=== PATIENT | male | born 1955 | race Caucasian/White ===

== ENCOUNTER 2019-03-20 13:10 | Inpatient (IN) | payer MEDICARE, OTHER ==
[~2019-03-20] VITALS: Ht 203.2 cm; Wt 163.0 kg
[~2019-03-20 13:10] MED LIST: AMLO-145 ORAL; AMOX500C2 PO; APIX5TAB ORAL; BENA20TA4 ORAL; CARV25TA97 PO; FURO20TA3 ORAL; LEVO25TA6 ORAL; LEVO750T25 PO; SULF1TAB31 PO; [UNRECOGNIZED DRUG - CODE] ORAL
[2019-03-20] MEDS ORDERED: CEFTRIAXONE 1 GM/50 ML (PMX) 50 ML IVPB SCH ×2 (14:30→17:00)
[2019-03-20] MEDS ORDERED: VANCOMYCIN IV PER PHARMACY XX SCH ×2 (14:30→17:00)
[2019-03-20] MEDS ORDERED: VANCOMYCIN 1 GM (PMX) 250 ML IVPB ONE (15:30)
[2019-03-20] MEDS ORDERED: ACETAMINOPHEN 325 MG TAB PO PRN ×2 (16:30→17:00)
[2019-03-20] MEDS ORDERED: ONDANSETRON 4 MG INJ IV PRN ×2 (16:30→17:00)
[2019-03-20] MEDS ORDERED: DOCUSATE SODIUM 100 MG CAP PO PRN (17:00)
[2019-03-20] MEDS ORDERED: NACL 0.9% 3 ML SYG IV SCH (17:00)
[2019-03-20] MEDS ORDERED: MAGNESIUM HYDROXIDE 30ML CUP PO PRN (17:00)
[2019-03-20] MEDS ORDERED: METOPROLOL 5 MG INJ IV PRN (17:30)
[2019-03-20] MEDS: FUROSEMIDE 20 MG TAB PO SCH (20:58)
[2019-03-20] MEDS: HYDROCODONE/APAP (5/325) TAB PO PRN (22:05)
[2019-03-20 22:44] VITALS: Ht 203.2 cm; Wt 163.0 kg
[2019-03-20 22:59] VITALS: BP 142/93; PULSE 107; RESP 22
[2019-03-21] VITALS (7 sets, daily range): BP systolic 91–115; BP diastolic 57–90; PULSE 65–114; RESP 18–21
[2019-03-21] MEDS: HYDROCODONE/APAP (5/325) TAB PO PRN ×2 (04:32→20:45)
[2019-03-21] MEDS: PANTOPRAZOLE (EC) 40 MG TAB PO SCH (06:14)
[2019-03-21] MEDS ORDERED: HEPARIN 25000 UNITS/250 ML 250 ML IV SCH (08:30)
[2019-03-21] MEDS ORDERED: HEPARIN 1000 UNITS/ML 10 ML INJ IV PRN (08:30)
[2019-03-21] MEDS ORDERED: HEPARIN 1000 UNITS/ML 10 ML INJ IV ONE (08:30)
[2019-03-21] MEDS: DIGOXIN 0.25 MG TAB PO SCH (08:31)
[2019-03-21] MEDS: BENAZEPRIL 20 MG TAB PO SCH (08:32)
[2019-03-21] MEDS: FUROSEMIDE 20 MG TAB PO SCH ×2 (08:32→20:44)
[2019-03-21] MEDS: AMLODIPINE 5 MG TAB PO SCH (08:32)
[2019-03-21] MEDS ORDERED: LEVOTHYROXINE 25 MCG TAB PO SCH (09:00)
[2019-03-21] MEDS: ENOXAPARIN 100 MG/ML SYG SC SCH ×2 (09:57→21:51)
[2019-03-21] MEDS ORDERED: CEFTRIAXONE 1 GM/50 ML (PMX) 50 ML IVPB SCH (17:30)
[2019-03-21] MEDS: AMPICILLIN/SULB 3 GM/NS (PMX) 100 ML IVPB SCH (18:28)
[2019-03-21] MEDS ORDERED: VANCOMYCIN HCL 2 GM in SOD CHLORIDE 0.9% 500 ML IVPB SCH (19:00)
[2019-03-22] VITALS (17 sets, daily range): BP systolic 92–132; BP diastolic 65–89; PULSE 72–104; RESP 14–22
[2019-03-22] MEDS: AMPICILLIN/SULB 3 GM/NS (PMX) 100 ML IVPB SCH ×5 (00:11→23:49)
[2019-03-22] MEDS: PANTOPRAZOLE (EC) 40 MG TAB PO SCH (05:46)
[2019-03-22] MEDS: LEVOTHYROXINE 25 MCG TAB PO SCH ×2 (05:46→08:37)
[2019-03-22] MEDS ORDERED: VANCOMYCIN HCL 1.75 GM in SOD CHLORIDE 0.9% 500 ML IVPB SCH (08:00)
[2019-03-22] MEDS: BENAZEPRIL 20 MG TAB PO SCH (08:36)
[2019-03-22] MEDS: DIGOXIN 0.25 MG TAB PO SCH (08:37)
[2019-03-22] MEDS: AMLODIPINE 5 MG TAB PO SCH (08:37)
[2019-03-22] MEDS: FUROSEMIDE 20 MG TAB PO SCH ×2 (08:38→21:15)
[2019-03-22] MEDS ORDERED: POLYMYXIN B 500000 UNIT INJ ONE ×2 (10:27→10:35)
[2019-03-22] MEDS ORDERED: OXYCODONE/ACETAMINOPHEN (5/325) TAB PO PRN ×2 (10:30)
[2019-03-22] MEDS ORDERED: ONDANSETRON 4 MG INJ IV PRN (10:30)
[2019-03-22] MEDS ORDERED: FENTAnyl 50 MCG/ML VIAL IV PRN ×3 (10:30)
[2019-03-22] MEDS ORDERED: MEPERIDINE 25 MG INJ IV PRN (10:30)
[2019-03-22] MEDS ORDERED: FENTAnyl 50 MCG/ML VIAL ONE (10:33)
[2019-03-22] MEDS ORDERED: PROPOFOL 20 ML ONE (10:33)
[2019-03-22] MEDS ORDERED: MIDAZOLAM 1 MG/ML 2 ML INJ ONE (10:34)
[2019-03-22] MEDS: morphine 2 MG INJ IV PRN (22:17)
[2019-03-23 04:21] VITALS: BP 117/81; PULSE 62; RESP 18
[2019-03-23] MEDS: PANTOPRAZOLE (EC) 40 MG TAB PO SCH (05:38)
[2019-03-23] MEDS: AMPICILLIN/SULB 3 GM/NS (PMX) 100 ML IVPB SCH ×2 (05:38→12:09)
[2019-03-23 07:25] VITALS: BP 110/74; PULSE 83; RESP 18
[2019-03-23] MEDS: DIGOXIN 0.25 MG TAB PO SCH (08:52)
[2019-03-23] MEDS: FUROSEMIDE 20 MG TAB PO SCH ×2 (08:53→20:19)
[2019-03-23] MEDS: LEVOTHYROXINE 25 MCG TAB PO SCH (08:59)
[2019-03-23] MEDS: BENAZEPRIL 20 MG TAB PO SCH (09:00)
[2019-03-23] MEDS: AMLODIPINE 5 MG TAB PO SCH (09:00)
[2019-03-23 11:29] VITALS: BP 135/69; PULSE 87; RESP 18
[2019-03-23] MEDS ORDERED: VANCOMYCIN IV PER PHARMACY XX SCH (15:00)
[2019-03-23 15:53] VITALS: BP 109/65; PULSE 74; RESP 18
[2019-03-23] MEDS ORDERED: VANCOMYCIN HCL 2 GM in SOD CHLORIDE 0.9% 500 ML IVPB ONE (16:00)
[2019-03-23] MEDS: morphine 2 MG INJ IV PRN ×2 (16:22→20:26)
[2019-03-23] MEDS: CEFTRIAXONE 2 GM/50 ML (PMX) 50 ML IVPB SCH (16:52)
[2019-03-23 20:00] VITALS: BP 101/66; PULSE 74; RESP 19
[2019-03-23] MEDS: APIXABAN 5 MG TABLET PO SCH (20:19)
[2019-03-23] MEDS: HYDROCODONE/APAP (5/325) TAB PO PRN (23:19)
[2019-03-23 23:21] VITALS: BP 98/71; PULSE 67; RESP 19
[2019-03-24] MEDS: morphine 2 MG INJ IV PRN (03:15)
[2019-03-24 03:55] VITALS: BP 125/65; PULSE 70; RESP 19
[2019-03-24] MEDS: HYDROCODONE/APAP (5/325) TAB PO PRN (05:08)
[2019-03-24] MEDS: PANTOPRAZOLE (EC) 40 MG TAB PO SCH (05:08)
[2019-03-24] MEDS: VANCOMYCIN HCL 1.75 GM in SOD CHLORIDE 0.9% 500 ML IVPB SCH ×2 (05:08→18:00)
[2019-03-24 07:47] VITALS: BP 116/72; PULSE 66; RESP 17
[2019-03-24] MEDS: BENAZEPRIL 20 MG TAB PO SCH (08:12)
[2019-03-24] MEDS: APIXABAN 5 MG TABLET PO SCH (08:12)
[2019-03-24] MEDS: DIGOXIN 0.25 MG TAB PO SCH (08:12)
[2019-03-24] MEDS: LEVOTHYROXINE 25 MCG TAB PO SCH (08:13)
[2019-03-24] MEDS: FUROSEMIDE 20 MG TAB PO SCH (08:13)
[2019-03-24] MEDS: AMLODIPINE 5 MG TAB PO SCH (08:13)
[2019-03-24 11:38] VITALS: BP 105/72; PULSE 71; RESP 17
[2019-03-24 15:30] VITALS: BP 100/64; PULSE 69; RESP 20
[2019-03-24] MEDS: CEFTRIAXONE 2 GM/50 ML (PMX) 50 ML IVPB SCH (15:35)
[2019-03-25] MEDS ORDERED: BENAZEPRIL 20 MG TAB PO SCH (09:00)
== END 2019-03-24 18:55 | disposition home health service (06) | DRG 264 ==
LOC: E/R 13:10 → PP2 17:13 → TEL 03-21 00:06
PROVIDERS: ADMIT Internal Medicine; ATTEND Internal Medicine
PROC: 0JBN0ZZ Excision of Right Lower Leg Subcutaneous Tissue and Fascia, Open Approach (ICD-10-PCS; 2019-03-22)
PROC: 0JBR0ZZ Excision of Left Foot Subcutaneous Tissue and Fascia, Open Approach (ICD-10-PCS; principal; 2019-03-22 10:00)
DX: I70.248 Atherosclerosis of native arteries of left leg with ulceration of other part of lower leg (principal); I50.33 Acute on chronic diastolic (congestive) heart failure; L03.115 Cellulitis of right lower limb; L03.116 Cellulitis of left lower limb; L97.829 Non-pressure chronic ulcer of other part of left lower leg with unspecified severity; I70.238 Atherosclerosis of native arteries of right leg with ulceration of other part of lower leg; L97.529 Non-pressure chronic ulcer of other part of left foot with unspecified severity; I11.0 Hypertensive heart disease with heart failure; I48.2 Chronic atrial fibrillation; E87.70 Fluid overload, unspecified; E66.01 Morbid (severe) obesity due to excess calories; E03.9 Hypothyroidism, unspecified; E78.5 Hyperlipidemia, unspecified; Z68.35 Body mass index [BMI] 35.0-35.9, adult; D64.9 Anemia, unspecified
CPT/HCPCS: 11042; 73590; 73630; 80048; 80053; 80061; 80069; 82550; 82553; 83735; 84145; 84436; 84443; 84479; 84484; 85025; 85651; 86140; 87070; 87075; 87102; 93005; 93306; 96365; 96367; 97162; 97167; G0463; J0295; J0696; J1650; J2250; J2270; J3010; J3370; J7040